=== PATIENT | male | born 1945 | race Two or more races ===

== ENCOUNTER 2022-09-18 15:49 | Inpatient (IN) | payer OTHER ==
[~2022-09-18] VITALS: Ht 167.6 cm; Wt 77.1 kg
[2022-09-18 16:44] LABS: BASOPHILS % (AUTO) 0.4 % (0.0-2.0); EOSINOPHILS # (AUTO) 0.2 K/uL (0.0-0.7); EOSINOPHILS % (AUTO) 2.3 % (0.0-6.0); HEMATOCRIT 44 % (39-51); HEMOGLOBIN 14.8 g/dL (13.5-17.5); LYMPHOCYTES # (AUTO) 2.1 K/uL (0.8-4.8); LYMPHOCYTES % (AUTO) 22.6 % (20.0-44.0); MEAN CORPUSCULAR HEMOGLOBIN 30 PG (26.0-33.0); MEAN CORPUSCULAR HGB CONC 34 g/dl (31.0-36.0); MEAN CORPUSCULAR VOLUME 89 fL (80-96); MONOCYTES # (AUTO) 0.5 K/uL (0.1-1.30); MONOCYTES % (AUTO) 5.6 % (2.0-12.0); NEUTROPHILS # (AUTO) 6.4 K/uL (1.8-8.9); NEUTROPHILS % (AUTO) 69.1 % (43.0-81.0); PLATELET COUNT (AUTO) 215 K/uL (150-450); RED BLOOD CELL COUNT(AUTO) 4.95 MIL/uL (4.5-6.0); RED CELL DISTRIBUTION WIDTH 14.2 % (11.5-15.0); WHITE BLOOD COUNT (AUTO) 9.2 K/uL (4.3-11.0)
[2022-09-18 17:08] LABS: CALCIUM, SERUM 9.2 mg/dL (8.5-10.1); CARBON DIOXIDE 21 mmol/L (21-32); CHLORIDE 104 mmol/L (98-107); CREATININE 1.1 mg/dL (0.6-1.3); GLUCOSE 57 mg/dL (74-106); POTASSIUM 3.3 mmol/L (3.5-5.1); SODIUM SERUM 137 mmol/L (136-145); UREA NITROGEN, BLOOD 23 mg/dL (7-18)
[2022-09-18 17:15] LABS: ALANINE AMINOTRANSFERASE 45 U/L (12-78); ALBUMIN 3.9 g/dL (3.4-5.0); ALKALINE PHOSPHATASE 103 U/L (46-116); ASPARTATE AMINOTRANSFERASE 38 U/L (15-37); BILIRUBIN,DIRECT 0.2 mg/dL (0.0-0.2); BILIRUBIN,TOTAL 0.6 mg/dL (0.2-1.0)
[2022-09-18] MEDS ORDERED: GLIP5TAB13 PO (18:31)
[2022-09-18] MEDS ORDERED: GABA300C PO (18:31)
[2022-09-18] MEDS ORDERED: LOSA100T31 PO (18:31)
[2022-09-18] MEDS ORDERED: ATOR10TA PO (18:31)
[2022-09-18] MEDS ORDERED: TAMS-12 PO (18:31)
[2022-09-18] MEDS ORDERED: OMEP40CA21 PO (18:31)
[2022-09-18] MEDS ORDERED: DONE10TA44 PO (18:31)
[2022-09-18] MEDS ORDERED: ASPI-1420 PO (18:31)
[2022-09-18] MEDS ORDERED: NAPR-1009 PO (18:31)
[2022-09-18] MEDS ORDERED: ACETAMINOPHEN 325 MG TABLET PO PRN (21:30)
[2022-09-18] MEDS ORDERED: ONDANSETRON HCL/PF 4 MG/2 ML VIAL IVP PRN (21:30)
[2022-09-18] MEDS ORDERED: DEXTROSE 50%-WATER 50 ML DISP.SYRIN IV PRN (21:30)
[2022-09-18] MEDS ORDERED: Z GUARD REMEDY 4 OZ OINT TP PRN (21:30)
[2022-09-18] MEDS ORDERED: POTASSIUM CHLORIDE 20 MEQ POWDER PACKET PO ONE ×2 (21:30)
[2022-09-18] MEDS ORDERED: IV D5/0.45 NACL 1,000 ML IV PRN (21:30)
[2022-09-18] MEDS ORDERED: INSULIN REGULAR, HUMAN 100 UNIT/ML 3 ML VIAL SQ PRN (21:30)
[2022-09-18] MEDS ORDERED: MAG HYDROX/AL HYDROX/SIMETH 30 ML UDC PO PRN (21:30)
[2022-09-18] MEDS ORDERED: MAGNESIUM HYDROXIDE 30 ML UDC PO PRN (21:30)
[2022-09-18] MEDS: BLOOD SUGAR DIAGNOSTIC 1 EACH STRIP IN SCH (22:57)
[2022-09-19] VITALS (8 sets, daily range): BP systolic 99–150; BP diastolic 59–88; TEMP 97.5–98.4; O2SAT 94–99
[2022-09-19] MEDS ORDERED: DEXTROSE 50%-WATER 50 ML DISP.SYRIN IV PRN (01:45)
[2022-09-19] MEDS ORDERED: ACETAMINOPHEN 325 MG TABLET PO PRN (01:45)
[2022-09-19] MEDS ORDERED: MAGNESIUM HYDROXIDE 30 ML UDC PO PRN (01:45)
[2022-09-19] MEDS ORDERED: IV D5/0.45 NACL 1,000 ML IV PRN (01:45)
[2022-09-19] MEDS ORDERED: MAG HYDROX/AL HYDROX/SIMETH 30 ML UDC PO PRN (01:45)
[2022-09-19] MEDS ORDERED: Z GUARD REMEDY 4 OZ OINT TP PRN (01:45)
[2022-09-19] MEDS ORDERED: ONDANSETRON HCL/PF 4 MG/2 ML VIAL IVP PRN (01:45)
[2022-09-19] MEDS ORDERED: POTASSIUM CHLORIDE 20 MEQ TAB.PRT.SR PO ONE (02:45)
[2022-09-19] MEDS ORDERED: POTASSIUM CHLORIDE 20 MEQ POWDER PACKET ONE (02:48)
[2022-09-19 05:57] LABS: BASOPHILS # (AUTO) 0.1 K/uL (0.0-0.2); BASOPHILS % (AUTO) 0.6 % (0.0-2.0); EOSINOPHILS # (AUTO) 0.3 K/uL (0.0-0.7); EOSINOPHILS % (AUTO) 3.5 % (0.0-6.0); HEMATOCRIT 45 % (39-51); LYMPHOCYTES # (AUTO) 1.7 K/uL (0.8-4.8); LYMPHOCYTES % (AUTO) 20.7 % (20.0-44.0); MEAN CORPUSCULAR HEMOGLOBIN 30 PG (26.0-33.0); MEAN CORPUSCULAR HGB CONC 34 g/dl (31.0-36.0); MEAN CORPUSCULAR VOLUME 90 fL (80-96); MONOCYTES # (AUTO) 0.5 K/uL (0.1-1.30); NEUTROPHILS # (AUTO) 5.8 K/uL (1.8-8.9); NEUTROPHILS % (AUTO) 69.2 % (43.0-81.0); PLATELET COUNT (AUTO) 212 K/uL (150-450); RED BLOOD CELL COUNT(AUTO) 4.99 MIL/uL (4.5-6.0); RED CELL DISTRIBUTION WIDTH 14.3 % (11.5-15.0); WHITE BLOOD COUNT (AUTO) 8.3 K/uL (4.3-11.0)
[2022-09-19 06:20] LABS: CALCIUM, SERUM 9.6 mg/dL (8.5-10.1); MAGNESIUM 2.1 mg/dL (1.8-2.4); PHOSPHORUS 3.7 mg/dL (2.5-4.9); POTASSIUM 4.8 mmol/L (3.5-5.1)
[2022-09-19] MEDS: BLOOD SUGAR DIAGNOSTIC 1 EACH STRIP IN SCH ×4 (06:35→22:49)
[2022-09-19] MEDS: DONEPEZIL 5 MG TABLET PO SCH (08:25)
[2022-09-19] MEDS: TAMSULOSIN 0.4 MG CAP.SR.24H PO SCH (08:25)
[2022-09-19] MEDS: LOSARTAN POTASSIUM 50 MG TABLET PO SCH (08:26)
[2022-09-19] MEDS: ASPIRIN EC 81 MG TABLET.DR PO SCH (08:26)
[2022-09-19] MEDS: PANTOPRAZOLE 40 MG TABLET.DR PO SCH (08:26)
[2022-09-19] MEDS ORDERED: TAMSULOSIN 0.4 MG CAP.SR.24H PO SCH (09:00)
[2022-09-19] MEDS ORDERED: ASPIRIN EC 81 MG TABLET.DR PO SCH (09:00)
[2022-09-19] MEDS: INSULIN REGULAR, HUMAN 100 UNIT/ML 3 ML VIAL SQ PRN ×2 (11:56→22:50)
[2022-09-19] MEDS ORDERED: GABAPENTIN 300 MG CAPSULE PO SCH ×2 (18:00)
[2022-09-19] MEDS ORDERED: ATORVASTATIN 10 MG TABLET PO SCH ×2 (18:00)
[2022-09-20] VITALS: BP 121/68; TEMP 97; O2SAT 94
[2022-09-20 00:55] VITALS: BP 99/61; TEMP 97.8; O2SAT 98
[2022-09-20 04:00] VITALS: BP 108/57; TEMP 97.8; O2SAT 95
[2022-09-20 04:50] VITALS: BP 108/57; TEMP 97.8; O2SAT 95
[2022-09-20] MEDS: BLOOD SUGAR DIAGNOSTIC 1 EACH STRIP IN SCH ×2 (07:47→11:59)
[2022-09-20 08:00] VITALS: BP 144/81; TEMP 97.8; O2SAT 96
[2022-09-20] MEDS: DONEPEZIL 5 MG TABLET PO SCH (09:06)
[2022-09-20] MEDS: TAMSULOSIN 0.4 MG CAP.SR.24H PO SCH (09:06)
[2022-09-20] MEDS: ASPIRIN EC 81 MG TABLET.DR PO SCH (09:06)
[2022-09-20 09:07] VITALS: BP 144/81
[2022-09-20] MEDS: LOSARTAN POTASSIUM 50 MG TABLET PO SCH (09:07)
[2022-09-20] MEDS: PANTOPRAZOLE 40 MG TABLET.DR PO SCH (09:08)
== END 2022-09-20 16:19 | disposition home or self-care (01) | DRG 639 ==
LOC: ER 17:00 → TELE 09-19 01:47
PROVIDERS: ADMIT Nurse Practitioner Acute Care; ATTEND Nurse Practitioner Acute Care
DX: E09.649 Drug or chemical induced diabetes mellitus with hypoglycemia without coma (principal); I10 Essential (primary) hypertension; N40.0 Benign prostatic hyperplasia without lower urinary tract symptoms; E87.6 Hypokalemia; E78.5 Hyperlipidemia, unspecified; T38.3X5A Adverse effect of insulin and oral hypoglycemic [antidiabetic] drugs, initial encounter; Y92.009 Unspecified place in unspecified non-institutional (private) residence as the place of occurrence of the external cause; R26.89 Other abnormalities of gait and mobility; F03.90 Unspecified dementia, unspecified severity, without behavioral disturbance, psychotic disturbance, mood disturbance, and anxiety; Z79.84 Long term (current) use of oral hypoglycemic drugs; Z96.659 Presence of unspecified artificial knee joint
CPT/HCPCS: 36415; 71045-TC; 80048-TC; 80061-TC; 80076-TC; 82962-TC; 83735-TC; 84100-TC; 84484-TC; 85025-TC; 93307-TC; 97112-TC; 97116-TC; 97530-TC; A4223; G0378; J3490

== ENCOUNTER 2022-12-14 12:34 | Emergency (ER) | payer OTHER ==
[~2022-12-14] VITALS: Ht 152.4 cm; Wt 54.0 kg
[~2022-12-14 12:34] MED LIST: ASPI-1420 PO; ATOR10TA PO; DONE10TA44 PO; GABA300C PO; LOSA100T31 PO; NAPR-1009 PO; OMEP40CA21 PO; TAMS-12 PO
[2022-12-14 13:12] VITALS: BP 113/64; TEMP 98.4; O2SAT 100
== END 2022-12-14 17:30 ==
LOC: ER 12:37
DX: S00.01XA Abrasion of scalp, initial encounter (principal); Z87.81 Personal history of (healed) traumatic fracture; R51.9 Headache, unspecified; E11.9 Type 2 diabetes mellitus without complications; Z79.899 Other long term (current) drug therapy; Z79.82 Long term (current) use of aspirin; W19.XXXA Unspecified fall, initial encounter; Y93.89 Activity, other specified; Y92.89 Other specified places as the place of occurrence of the external cause; Y99.8 Other external cause status
CPT/HCPCS: 70450-TC; 71045-TC; 73030-TC